=== PATIENT | female | born 1955 | race Caucasian/White ===

== ENCOUNTER 2017-05-04 19:23 | Emergency (ER) | payer OTHER ==
[2017-05-04] MEDS ORDERED: ALBUTEROL SULFATE 2.5 MG/3 ML NEB ONE (19:49)
[2017-05-04] MEDS ORDERED: NORMAL SALINE 10 ML SYRINGE FLUSH IVP PRN (19:49)
[2017-05-04 20:00] VITALS: RESP 18; TEMP 97.6
[2017-05-04 20:08] LABS: BASOPHILS % (AUTO) 0.8 % (0-1); EOSINOPHILS # (AUTO) 0.25 10*3/UL; EOSINOPHILS % (AUTO) 1.9 % (0-8); HEMATOCRIT 45.8 % (37.0-47.0); LYMPHOCYTES # (AUTO) 2.61 10*3/uL; MEAN CORPUSCULAR HEMOGLOBIN 29.6 PG (27-31); MEAN CORPUSCULAR HGB CONC 32.8 g/dL (33-37); MEAN CORPUSCULAR VOLUME 90.3 FL (81-99); MEAN PLATELET VOLUME 9.6 FL (7.4-12.2); MONOCYTES # (AUTO) 0.89 10*3/UL (0.3-0.8); MONOCYTES % (AUTO) 6.8 % (5-15); NEUTROPHILS # (AUTO) 9.27 10*3/UL; NEUTROPHILS % (AUTO) 70.3 % (50-80); RED BLOOD COUNT 5.07 10^6/uL (4.20-5.40)
[2017-05-04 20:10] LABS: PLATELET MORPHOLOGY COMMENT NORMAL MORPHOLOGY (NORM); RBC MORPHOLOGY COMMENT NORMAL MORPHOLOGY (NORM); WBC MORPHOLOGY COMMENT NORMAL MORPHOLOGY (NORM)
[2017-05-04 20:17] LABS: BLOOD UREA NITROGEN 22 mg/dL (7-22); CALCIUM 9.7 mg/dL (8.7-10.7); EST GLOMERULAR FILTRATION > 60 (>60 ml/min/1.73m(2)); SERUM ALBUMIN 4.2 g/dL (3.5-4.8)
--- NOTE | 2017-05-04 21:41 | DI ---
HISTORY: Cough, chest pain. COMPARISON: 11/09/2015. FINDINGS: The heart is in the upper limits of normal. Compared to the previous examination, there is accentuation of the pulmonary vasculature in both lung bases. The lung marr are otherwise essenti ally clear. IMPRESSION: 1. Accentuation of the pulmonary vasculature bilateral lung bases.
--- NOTE | 2017-05-04 22:32 | DI ---
HISTORY: Chest pain. Elevated D-dimer. TECHNIQUE: Contiguous axial images of the chest were obtained and submitted for interpretation. FINDINGS: Patient body habitus creates artifact that limits evaluation of fine anatomic detail. No main or segmental pulmonary emboli. There are emphysematous changes bilaterally, most conspicuous in the upper lobes. No pneumothorax, pl eural effusion, or area of consolidation. There are patchy areas of ground glass attenuation bilater ally. This is a non-specific finding with a broad differential that includes atypical infection, as w ell as pulmonary edema and hemorrhage. Airways are patent with no endobronchial lesion. No evidence of great vessel injury, dissection, or aneurysm. There are atheromatous aortic and coron lior artery calcifications. Heart size is at the upper limits of normal with no pericardial effusion. There are multiple shotty mediastinal and right hilar lymph nodes, not pathologically enlarged by CT size criteria. The thyroid exhibits normal CT morphology. Limited evaluation of the upper abdomen reveals diffuse hypoenhancement of the liver relative to the spleen, a finding commonly associated with hepatic steatosis. No acute osseous abnormality or aggressive osseous lesion. There is multilevel degenerative disc dise ase. The patient is status post total right shoulder arthroplasty. There are surgical changes of the lower cervical spine. IMPRESSION: 1. No CT evidence of main or segmental pulmonary emboli. 2. Bilateral emphysematous changes, most conspicuous in the upper lobes, with patchy areas of ground glass attenuation bilaterally. This is a non-specific finding with a broad differential that include s atypical infection, as well as pulmonary edema and hemorrhage. Follow-up to resolution is recommen ded. 3. Probable hepatic steatosis.
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
== END 2017-05-04 22:30 | disposition left against medical advice (07) ==
LOC: ER 19:23
DX: J20.9 Acute bronchitis, unspecified (principal); J18.9 Pneumonia, unspecified organism; J02.9 Acute pharyngitis, unspecified; J44.9 Chronic obstructive pulmonary disease, unspecified; R05 Cough; R79.1 Abnormal coagulation profile; E11.9 Type 2 diabetes mellitus without complications
CPT/HCPCS: 36415; 71020; 71275; 80053; 85025; 85379; 87040; 87802; 94640; 99283

== ENCOUNTER 2017-05-05 19:15 | Emergency (ER) | payer OTHER ==
[2017-05-05] MEDS ORDERED: HYDROcodone-APAP 5 MG -325 MG TABLET PO ONE (19:34)
[2017-05-05] MEDS ORDERED: KETOROLAC 60 MG/2 ML VIAL IM ONE (19:34)
[2017-05-05] MEDS ORDERED: GUAIFENESIN/CODEINE SYRUP 100 MG/ 10 MG/ 5 ML UD CUP PO SCH (19:45)
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
[2017-05-05 20:29] VITALS: RESP 18; TEMP 97
== END 2017-05-05 20:01 | disposition home or self-care (01) ==
LOC: ER 19:15
DX: J18.9 Pneumonia, unspecified organism (principal); R05 Cough; M54.89 Other dorsalgia; E11.9 Type 2 diabetes mellitus without complications
CPT/HCPCS: 96372; 99282 ×2; J1885; J2360

== ENCOUNTER → 2017-05-07 | Outpatient (CLI) | payer OTHER ==
--- NOTE | 2017-05-07 08:20 | DI ---
PA /LATERAL CHEST X-RAY, 05/07/2017 7:20 AM : Clinical History: Cough. Previous Exam: 05/04/2017. There is no acute soft tissue or bony abnormality. The heart on the current exam shows mild cardiomeg shilpa whereas on the previous exam, the heart size was normal. The vessels are more prominent in number and more plethoric and hazier than on the previous exam. This patient may have developed mild CHF. T here is no acute infiltrate or effusion. Mediastinal structures are normal. There are no pulmonary no dules. There is a compression fracture of the midthoracic spine, age indeterminate. Readin. Interval development of cardiomegaly. This patient may have mild CHF. 2. There is no acute infiltrate or effusion. 3. Midthoracic compression fracture, age indeterminant. By definition, this patient has severe osteo porosis.
--- NOTE | 2017-05-07 08:26 | DI ---
THORACIC SPINE SERIES, 05/07/2017 7:20 AM: Clinical History: Acute mid thoracic back pain. Previous Exam: None at this facility. Comparison is made with chest x-rays from 05/04/2017, and 05/07/20 17. Upright PA and lateral and upright lateral swimmer's views are submitted. A fracture of T8 with infer ior endplate invagination and loss of height of approximately 25-30%. On the PA film, there is parave rtebral widening on the left side at the level of T8 and extending to the mid body of T7 and T9. This would indicate this is a subacute or acute compression fracture. The remaining vertebral bodies are of normal height. The disc spaces are intact. Pedicles are normal. The patient has had previous anter ior fusions at C4-5 and C5-6. Readin. There is an acute or subacute compression fracture of T8 with loss of height anteriorly between 2 5-30%. By definition, this patient has severe osteoporosis. 2. The remainder of the thoracic spine series is normal.
== END ==
LOC: MOB RAD 07:21
PROVIDERS: ATTEND Physician Assistant
DX: R05 Cough (principal); M54.6 Pain in thoracic spine; M80.88XA Other osteoporosis with current pathological fracture, vertebra(e), initial encounter for fracture; I50.9 Heart failure, unspecified; F17.200 Nicotine dependence, unspecified, uncomplicated
CPT/HCPCS: 71020; 72072

== ENCOUNTER 2017-05-09 03:52 | Inpatient (IN) | payer OTHER ==
[2017-05-09] MEDS ORDERED: HYDROmorphone 2 MG/1 ML IVP ONE (04:40)
[2017-05-09] MEDS ORDERED: NORMAL SALINE 10 ML SYRINGE FLUSH IVP PRN (04:41)
[2017-05-09 05:15] LABS: BASOPHILS # (AUTO) 0.12 10*3/UL; BASOPHILS % (AUTO) 1.1 % (0-1); EOSINOPHILS # (AUTO) 0.49 10*3/UL; EOSINOPHILS % (AUTO) 4.7 % (0-8); HEMATOCRIT 41.2 % (37.0-47.0); HEMOGLOBIN 13.7 g/dL (12.0-16.0); LYMPHOCYTES # (AUTO) 2.55 10*3/uL; MEAN CORPUSCULAR HEMOGLOBIN 30.2 PG (27-31); MEAN CORPUSCULAR HGB CONC 33.3 g/dL (33-37); MEAN CORPUSCULAR VOLUME 90.7 FL (81-99); MEAN PLATELET VOLUME 9.8 FL (7.4-12.2); MONOCYTES % (AUTO) 8.6 % (5-15); RED BLOOD COUNT 4.54 10^6/uL (4.20-5.40)
[2017-05-09 05:16] LABS: PLATELET MORPHOLOGY COMMENT NORMAL MORPHOLOGY (NORM); RBC MORPHOLOGY COMMENT NORMAL MORPHOLOGY (NORM); WBC MORPHOLOGY COMMENT NORMAL MORPHOLOGY (NORM)
[2017-05-09 05:22] LABS: BLOOD UREA NITROGEN 18 mg/dL (7-22); CALCIUM 9.8 mg/dL (8.7-10.7); EST GLOMERULAR FILTRATION > 60 (>60 ml/min/1.73m(2)); SERUM ALBUMIN 4.1 g/dL (3.5-4.8)
[2017-05-09] MEDS ORDERED: ONDANSETRON 4 MG/2 ML VIAL IVP ONE (05:33)
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
[2017-05-09] MEDS ORDERED: ALBUTEROL SULFATE 8.5 GM HFA INHALER INH PRN (06:25)
[2017-05-09] MEDS ORDERED: ACETAMINOPHEN 325 MG TABLET PO PRN (06:25)
[2017-05-09] MEDS ORDERED: LIDOCAINE W/ SODIUM BICARB 0.5 ML SYR SUBD PRN (06:25)
[2017-05-09] MEDS ORDERED: GUAIFENESIN/CODEINE SYRUP 100 MG/ 10 MG/ 5 ML UD CUP PO PRN (06:25)
[2017-05-09] MEDS ORDERED: HYDROcodone-APAP 7.5 MG-325 MG TABLET PO PRN (06:25)
[2017-05-09 06:53] LABS: HEMOGLOBIN A1C 5.99 % (4.2-6.0)
[2017-05-09] MEDS: IPRATROPIUM/ALBUTEROL SULFATE 3 ML NEB NEB SCH ×3 (06:58→18:28)
[2017-05-09] MEDS ORDERED: BACLOFEN 20 MG TABLET PO SCH (07:00)
[2017-05-09] MEDS: HYDROmorphone 2 MG/1 ML IVP PRN ×2 (07:53→15:54)
[2017-05-09] MEDS: KETOROLAC 30 MG/1 ML VIAL IVP PRN ×2 (08:31→21:47)
[2017-05-09] MEDS: ONDANSETRON 4 MG/2 ML VIAL IVP PRN ×2 (08:31→14:37)
[2017-05-09] MEDS: PANTOPRAZOLE 40 MG TABLET PO SCH (08:39)
[2017-05-09 09:05] LABS: FREE T4 (FREE THYROXINE) 0.98 ng/dL (0.93-1.71); VITAMIN D 25-HYDROXY 26.1 NG/ML (30-100)
[2017-05-09] MEDS: Sertraline Tab 50 MG TAB PO SCH (12:37)
[2017-05-09] MEDS: POLYETHYLENE GLYCOL 3350 17 GM POWDER PO SCH (12:37)
[2017-05-09] MEDS: DEXTROAMPHETAMINE PO SCH ×2 (12:38→23:20)
[2017-05-09] MEDS: Calcium/Vit D 600mg/400u Tab 1 TAB TABLET PO SCH (12:38)
[2017-05-09] MEDS: AMPHETAMINE PO SCH ×2 (12:38→23:20)
[2017-05-09] MEDS: CALCIUM CARBONATE 500 MG (TUMS) CHEWABLE TABLET PO PRN ×2 (12:59→18:52)
[2017-05-09] MEDS ORDERED: CEFUROXIME 500 MG TABLET PO ONE (13:41)
[2017-05-09] MEDS ORDERED: ERGOCALCIFEROL 50,000 IU CAPSULE PO SCH (13:45)
--- NOTE | 2017-05-09 13:49 | PDOC ---
History and Physical - History of Present Illness Date and Time of Service: 05/09/2017, 1345 Chief Complaint: Back pain radiating around the rib cage and nausea and vomiting History of Present Illness: This very pleasant 61-year-old female who is hard of hearing, has a diagnosis of attention deficit hyperactivity disorder that is still being treated from childhood, tobacco abuse with COPD, and a Worker's Comp. disability from a fall in 2013 who presents with complaints of back pain and associated nausea and vomiting starting about a week to a week and a half ago. She states that she was brushing her hair or combing her hair and had a sudden onset of pain in her mid back that radiated around her rib cage. It's been further exacerbated by cough and she's noticed that she's had nausea and vomiting. No fevers or chills. The cough has been present for the last couple weeks as well and definitely worsens the pain. She's not had any prior abdominal surgeries. Imaging to this point has been suggestive of a T8 compression fracture, although a plan was to get an MRI scan to confirm and further workup and diagnosis. The patient states that ibuprofen has not helped with the pain. She states pain medications here have been helping it. She has had significant musculoskeletal difficulties over the past 3 years, and particular starting on the November 2013 when she fell at work. She has had subsequent right shoulder surgery on a couple of occasions. On that fall she twisted and fell over a box and apparently landed on her left hand. Other details can be reviewed and other documentation. She states that the pain she felt in her back was similar to the pain she felt back in 2014 with her fall. I noticed that the patient had significant movement of her arms and legs that looked almost chorionic in nature and I have noticed that the same types of movements have been noted on other examinations, but the patient denies any history of Elliott's Chorea in the family. Past Medical History Medical History: 1. Diabetes, currently diet controlled. 2. Hypertension. 3. COPD, patient still smokes. 4. Objective sleep apnea but noncompliant with CPAP therapy. She does not tolerate it. 5. Depression. 6. ADHD, on Adderall. 7. GERD. 8. elevated cholesterol. 9. Hard of hearing Surgical History: 1. Right shoulder surgery 2. 2. Thoracic fusion Pertinent Family History: States her mother of old age in her 90s, dad of heart attack problems Past Social History: Smoker, doesn't drink alcohol. Lives alone here in [place] , has children that are described as healthy. She is on disability from a Worker's Comp. case. Tobacco Use: Current Every Day Smoker Substance Use Type: None Alcohol Use: None Medication / Allergies Home Medications: Home Medications Medication Instructions Recorded Confirmed Type Azelastine/Fluticasone [Dymista 2 spr LUIS ALBERTO BID spr 06/14/16 05/09/17 History Nasal [place]] Albuterol Sulfate [Proair Hfa] 2 puff INH Q4-6H #1 inh 01/23/17 05/09/17 Clinic Albuterol/Ipratrop Neb Soln 3 ml NEB 3-4XD #120 appful 01/23/17 05/09/17 Clinic [Duoneb Neb Soln] Pantoprazole Sodium 1 tab PO DAILY #30 tab 02/13/17 05/09/17 Clinic Pravastatin Sodium 1 tab PO DAILY #30 tab 02/28/17 05/09/17 Clinic Zolpidem Tartrate [Ambien] 1 tab PO QHS #30 tab 03/09/17 05/09/17 Clinic Sertraline HCl [Zoloft] 1 tab PO DAILY #30 tab 04/09/17 05/09/17 Clinic guaiFENesin/Codeine Liquid 5 - 10 ml PO Q6H PRN #100 ml 05/05/17 05/09/17 Rx [Robitussin AC Liquid] Dextroamphetamine/Amphetamine 1 tab PO BID #60 cap 05/07/17 05/09/17 Clinic [Adderall Xr 30 Mg Capsule] Hydrocodone Bit/Acetaminophen 1 tab PO Q4-6H #20 tab 05/07/17 05/09/17 Clinic [[place] 7.5-325 Tablet] Baclofen 10 mg PO Q8H #90 tab 05/08/17 05/09/17 Clinic Allergies/Adverse Reactions: Allergies Allergy/AdvReac Type Severity Reaction Status Date / Time No Known Allergies Allergy Verified 05/09/17 06:42 Review of Systems - Review of Systems All Systems: Reviewed & No Additional Complaints Except as Stated (I did a 12 point review systems and it was negative other than that discussed in history present illness and that noted below.) - Respiratory Respiratory: REPORTS: Cough - Cardiovascular Cardiovascular: DENIES: Negative System Review, Chest Pain, Edema, Syncope, Palpitations, Orthopnea, Paroxysmal Nocturnal Dyspnea, Other, See HPI - Gastrointestinal Gastrointestinal / Abdominal: REPORTS: Nausea, Vomiting - Genitourinary Genitourinary: DENIES: Negative System Review, Pain, Burning, Hematuria, Incontinence, Urgency, Hesitant Stream, Decreased Stream, Nocutria, Discharge, Sexual Dyfunction, Other, See HPI - Gynecological Gynecological: REPORTS: Other (Stopped having periods in 2005, no vaginal bleeding.) - Musculoskeletal Musculoskeletal: REPORTS: Back Pain, Other (Complains of rib pain and back pain , mid thoracic region.) - Neurological Neurologic: REPORTS: Other (Denies headache, seizure, or stroke. States that she has muscle pains frequently and moves her arms and legs frequently.) - Psychiatric Psychiatric: REPORTS: Other (Positive for ADHD.) Exam - Vitals Vital Signs: Vital Signs Temperature 96.5 F Temperature Source Temporal Artery Scan Pulse Rate [Pulse Oximeter] 77 Respiratory Rate 20 Blood Pressure [Right Arm] 134/54 Pulse Ox 93 Oxygen Flow Rate 3 Oxygen Delivery Method Room Air Height 5 ft 9 in Weight 230 lb - General General Appearance: POSITIVE: No Acute Distress, Cooperative - Head Head Exam: POSITIVE: Normal Inspection, Normocephalic, Atraumatic - Eye Eye Exam: POSITIVE: No Scleral Icterus - ENT ENT Exam: POSITIVE: Mucous Membranes Moist Additonal ENT Exam Details: Hearing aids are on bilaterally. - Neck Neck Exam: POSITIVE: Normal Inspection - Respiratory Respiratory Exam: POSITIVE: Breathing Non Labored, Normal to Percussion and Palpation, Coarse Breath Sounds - Cardiovascular Cardiovascular Exam: POSITIVE: RRR, No Murmur, No Clicks, No Gallops, No Rubs, No JVD - GI/Abdominal GI/Abdominal Exam: POSITIVE: Normal Bowel Sounds, Non Tender, Non Distended, Soft - Rectal Rectal Exam: POSITIVE: Deferred - External Exam: POSITIVE: Deferred Exam: POSITIVE: Deferred - Extremities Extremities Exam: POSITIVE: No Clubbing Present, No Edema Present, No Cyanosis Present Additional Extremities Exam Details: Has significant almost chorea like movements in the upper extremities and lower extremities. - Back Back Exam: POSITIVE: No CVA Tenderness - Neurological Neurological Exam: POSITIVE: Alert, Oriented x 3, Normal Gait, No Facial Droop, Speech Intact / Clear, Moves All Extremities Equally - Psychiatric Psychiatric Exam: POSITIVE: Normal Affect, Normal Mood Results - Labs CBC and BMP: 05/09/17 05:00 05/09/17 05:00 Labs - Last 24 Hours: Laboratory Results 05/09/17 05/09/17 Range/Units 04:41 05:00 WBC 10.49 (4.8-10.8) 10^3/uL RBC 4.54 (4.20-5.40) 10^6/uL Hgb 13.7 (12.0-16.0) g/dL Hct 41.2 (37.0-47.0) % MCV 90.7 (81-99) FL MCH 30.2 (27-31) PG MCHC 33.3 (33-37) g/dL RDW Std Deviation 46.9 (39-50) fL RDW Coeff of Joseph 14.4 (11.5-14.5) % Plt Count 299 (140-350) 10*3/uL MPV 9.8 (7.4-12.2) FL Immature Gran % (Auto) 0.3 (0-5) % Neut % (Auto) 61.0 (50-80) % Lymph % (Auto) 24.3 (10-50) % [place] % (Auto) 8.6 (5-15) % Eos % (Auto) 4.7 (0-8) % Baso % (Auto) 1.1 H (0-1) % Immature Gran # (Auto) 0.03 10*3/UL Neut # (Auto) 6.40 10*3/UL Lymph # (Auto) 2.55 10*3/uL [place] # (Auto) 0.90 H (0.3-0.8) 10*3/UL Eos # (Auto) 0.49 10*3/UL Baso # (Auto) 0.12 10*3/UL WBC Morphology Comment Normal morphology (NORM) Plt Morphology Comment Normal morphology (NORM) RBC Morph Comment Normal morphology (NORM) Sodium 138 (135-145) meq/L Potassium 4.4 (3.8-5.2) meq/L Chloride 102 (98-112) meq/L Carbon Dioxide 26 (23-33) meq/L Anion Gap 10 (5-20) BUN 18 (7-22) mg/dL Creatinine 0.8 (0.50-1.20) mg/dL Estimated GFR > 60 (>60 ml/min/1.73m(2)) BUN/Creatinine Ratio 22.50 H (6-20) Glucose 108 (78-110) mg/dL Mean Blood Glucose 113.467 mg/dL Hemoglobin A1c 5.99 (4.2-6.0) % Calculated Osmolality 288.0 (267-292) mOsm/kg Calcium 9.8 (8.7-10.7) mg/dL Total Bilirubin 0.6 (0.3-1.2) mg/dL AST 24 (8-39) IU/L ALT 40 (9-52) IU/L Alkaline Phosphatase 109 (38-126) IU/L Total Protein 7.4 (6.1-8.0) g/dL Albumin 4.1 (3.5-4.8) g/dL Globulin 3.3 (2.50-4.10) g/dL Albumin/Globulin Ratio 1.20 L (1.3-2.0) mg/g Vitamin B12 414 (239-931) pg/mL Vitamin D 25-Hydroxy 26.1 L (30-100) NG/ML Serum Folate 17.9 (2.76-20.0) NG/ML TSH 4.74 H (0.2700-4.2000) uIU/mL Free T4 0.98 (0.93-1.71) ng/dL Assessment and Plan - Patient Problems (1) COPD (chronic obstructive pulmonary disease) Current Visit: Yes Status: Acute (2) Thoracic back pain Current Visit: Yes Status: Acute (3) Attention deficit disorder Current Visit: Yes Status: Acute (4) Chronic right shoulder pain Current Visit: Yes Status: Chronic (5) Nausea and vomiting Current Visit: Yes Status: Acute (6) Obstructive sleep apnea Current Visit: Yes Status: Acute (7) Obesity Current Visit: Yes Status: Acute Qualifiers: Obesity type: unspecified obesity type Obesity severity: non-morbid Qualified Description: Non morbid obesity, unspecified obesity type Qualifier Code(s): (E66.9) Obesity, unspecified (8) Tobacco abuse Current Visit: Yes Status: Acute - Assessment / Plan Additional Assessment/Plan Details: Overall, I think the patient probably has COPD exacerbation with worsening cough here recently. We'll streak that with antibiotics and steroids and breathing therapies as necessary. In terms of the thoracic back pain, this is most likely attributable to a T8 compression fracture and I will go ahead with a thoracic MRI to confirm. 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 That would fit her medical conditions. The patient has a lot of atypical movements of her arms and legs that make me think of Elliott's chorea. We will get the genetic tests to confirm whether this is right. She states that she sees a neurologist, and I'll try to track down his records as well. Pain medications for abdominal and thoracic pain as well as antiemetics. I discussed the above plan with the patient and she agreed.
--- NOTE | 2017-05-09 14:00 | DI ---
CT ABDOMEN SCAN WITHOUT AND WITH IV CONTRAST, 05/09/2017 12:33 PM : Clinical History: Nausea and vomiting. Previous Exam: None at this facility. Scans are performed from the lower lung bases through the liver and kidneys without and with IV contr ast. Sagittal and coronal images are generated. 95 ml of Isovue 300 was injected IV. No oral or recta l contrast was ordered. The lung bases are clear. The liver is normal. The gallbladder is grossly normal. There is no abnorma lity of the spleen, pancreas, and adrenal glands. Both kidneys are normal in size, shape, position an d contour. There is no hydronephrosis or hydroureter. No renal or ureteral calculi are present. There are no abnormal retrocrural or periaortic nodes. There is no ascites. READING: Normal CT abdomen scan without and with IV contrast. CT PELVIS SCAN WITHOUT AND WITH IV CONTRAST, 05/09/2017 12:33 PM: Clinical History: See above. Previous Exam: None at this facility. Scans are performed from just superior to the umbilicus to the symphysis pubis without and with IV co ntrast. This is the same bolus of IV contrast used for the CT scans of the abdomen. Scans through the lower abdomen and pelvis show no masses or abnormal fluid collections. There is no adenopathy. The appendix is not visualized but there is no inflammatory mass either in the cecal tip or in the right lower quadrant. The small bowel, terminal ileum, and ileocecal valve are intact. The colon is also normal. There are no hernias. The uterus and both ovaries are normal. READING: Normal CT scan of the pelvis.
[2017-05-09] MEDS ORDERED: DIAZEPAM 5 MG TABLET PO ONE (14:11)
[2017-05-09] MEDS: oxyCODONE-ACETAMINOPHEN 5-325 TAB PO PRN ×2 (14:13→22:11)
--- NOTE | 2017-05-09 16:02 | PT.PROG ---
Progress Note Progress Note: Nursing suggested hold this afternoon due to pain and Patient having MRI.
--- NOTE | 2017-05-09 17:57 | DI ---
MRI THORACIC SPINE SCAN, 05/09/2017 12:32 PM: Clinical History: Mid thoracic back pain. Previous Exam: None. Comparison is made with a CT scan of the abdomen and pelvis dated 05/09/2017 and the thoracic spine series from 05/07/2017. Technique: Sagittal T1 and T2 weighted and STIR scans are supplemented with an axial angulated T1 and T2 weighted scans between T1 and T12. There is a compression fracture of T8 primarily involving the inferior endplate with loss of height l ess than 10%. The entire vertebral body shows increased signal intensity on the T2-weighted and STIR sequences and low signal intensity on the T1-weighted sequences. There is no paravertebral soft tissu e widening to indicate a hematoma. Therefore, this compression fracture most likely is subacute. The remaining thoracic vertebral bodies are of normal height. The thoracic disc spaces are of normal heig ht and all show desiccation change. The thoracic cord and the conus medullaris are normal. T2-3 has a bulging but not herniated disc without canal or neural foraminal stenosis. All other thoracic disc s pace levels are normal. There is no intradural extramedullary lesion present. Readin. There is a very mild compression fracture involving the body of T8 consistent with a subacute fra cture. This same level was felt to be a chronic compression fracture on the CT scan because of the ab sence of any paravertebral widening at the T8 level. However, there was some widening on the left shelley e on the thoracic spine series of 05/07/2017, and this presumably since has resolved. 2. There is a bulging but not herniated disc without canal or neural foraminal stenosis at T2-3. 3. All other thoracic disc spaces are normal.
[2017-05-09] MEDS: Pravastatin Tab 20 MG TAB PO SCH (21:45)
[2017-05-09] MEDS: ZOLPIDEM 10 MG TABLET PO SCH (21:45)
[2017-05-09] MEDS: CEFUROXIME 500 MG TABLET PO SCH (21:45)
[2017-05-09] MEDS: NORMAL SALINE 10 ML SYRINGE FLUSH IVP PRN (21:49)
[2017-05-09] MEDS ORDERED: GUAIFENESIN 600 MG TABLET PO PRN (22:42)
[2017-05-10] MEDS: IPRATROPIUM/ALBUTEROL SULFATE 3 ML NEB NEB SCH ×4 (01:05→18:40)
[2017-05-10] MEDS: HYDROmorphone 2 MG/1 ML IVP PRN ×3 (01:29→20:13)
[2017-05-10] MEDS: oxyCODONE-ACETAMINOPHEN 5-325 TAB PO PRN ×4 (04:15→21:42)
[2017-05-10] MEDS: KETOROLAC 30 MG/1 ML VIAL IVP PRN (06:01)
[2017-05-10] MEDS: NORMAL SALINE 10 ML SYRINGE FLUSH IVP PRN ×3 (06:02→14:31)
[2017-05-10] MEDS: PANTOPRAZOLE 40 MG TABLET PO SCH (06:49)
--- NOTE | 2017-05-10 08:47 | PTI REPORT ---
Thank you for the referral of Viviane Oscar. She was seen on 05/09/17 for an inpatient evaluation secondary to a compression fracture. SUBJECTIVE: The patient is a 61-year-old female who states that approximately a week and a half ago she began to have some severe stomach pains and back pain. The patient states that over the weekend she was in the ER twice where an x-ray and CT scan were performed. The patient possibly has a T8 or T9 compression fracture. The patient was then in Urgent Care on Sunday, continuing to complain of severe pain. The patient did meet with BOWEN Guerrero yesterday in regards to her back pain and the patient was given an order for a back brace but was unable to afford it due to her insurance. The patient states that last night she did take her pain medication and Ambien prior to going to bed in her recliner as she is unable to lay supine. The patient states that some time in the middle of the night she woke up screaming and her neighbors called 911 and that is how she ended up in the hospital. The patient states that she feels very nauseous; she has not been able to eat and feels that a lot of it is due to the pain medication that she has been given. The patient complains of back pain radiating around her ribs as well as abdominal pain. Prior to admittance to the hospital, the patient has had multiple surgeries in the past. She was currently being seen by physical therapy for a reverse right total shoulder that occurred in October of 2016 following two failed rotator cuff repairs on the right side. The patient has had a history of neck and back pain. The patient lives alone in her apartment with her service dog Ap and she does have a friend who does help take care of issues that arise. The patient is also legally deaf. She does have hearing aids but does not have them present during our initial evaluation. Her friend is supposed to be bringing those in later today. Prior to admittance to the hospital the patient was independent with ambulating, driving, and performing ADLs and small iADLs. The patient did receive meals on wheels and also assistance from her friend as needed with more strenuous activities. The patient is very stressed out at this time as her service dog recently had a surgery and she is very worried about how he is doing. PAST MEDICAL HISTORY: Past medical history can be found in the patient's medical record. OBJECTIVE FINDINGS: General observations: The patient is alert and oriented to setting upon PT arrival. The patient appears very distraught as she is concerned about her service dog and also is frustrated as she does not have her hearing aids, so she is having a very tough time understanding exactly what is going on. The patient states that she is very nauseous, she has been unable to eat and feels very sick to her stomach. The patient is sitting up semi reclined in bed as she is unable to lay supine. Transfers: Due to the patient's pain, we were unable to perform transfers. She was able to sit up in bed in order to put IFC on her mid back to help with pain modulation. Range of motion: The patient is able to move both upper and lower extremities independently. Strength: The patient demonstrates 3/5 strength of bilateral lower extremities. ASSESSMENT: The patient has fair rehab potential due to her past medical history. Problem List: Uncontrolled pain of back and abdomen Generalized weakness Decreased endurance Decreased activity tolerance Short-Term Goals: To be met by discharge from inpatient: Patient will report a 50% decrease in pain in order to be able to perform ADLs and transfers independently. Patient will be independent and safe with transfers and ambulation in order to return back to her apartment. Patient will be able to perform 30 minutes of exercise in order to improve her overall endurance and activity tolerance to return back home and to continue to care for herself as independently as possible. Long-Term Goals: To be met following discharge from inpatient: Patient most likely will be seen by outpatient physical therapy to improve overall strength. She will continue to be seen for her right shoulder following discharge. TREATMENT PLAN: Patient will be seen B.I.D during the week and one time per day over the weekend as an inpatient for pain management with modalities as needed, working on independence and safety with transfers, ambulation, and general strengthening activities. INITIAL TREATMENT: Treatment today consisted of the initial evaluation followed by IFC to her mid back for pain modulation. The patient was issued a brace for suspected compression fracture. THEODORE
[2017-05-10] MEDS ORDERED: Meloxicam Tab 7.5 MG TABLET PO ONE (09:29)
[2017-05-10] MEDS: Calcium/Vit D 600mg/400u Tab 1 TAB TABLET PO SCH (10:28)
[2017-05-10] MEDS: Sertraline Tab 50 MG TAB PO SCH (10:29)
[2017-05-10] MEDS: predniSONE Tab 20 MG TAB PO SCH (10:29)
[2017-05-10] MEDS: CEFUROXIME 500 MG TABLET PO SCH ×2 (10:29→20:05)
[2017-05-10] MEDS: POLYETHYLENE GLYCOL 3350 17 GM POWDER PO SCH (10:29)
[2017-05-10] MEDS: DEXTROAMPHETAMINE PO SCH ×2 (10:33→20:05)
[2017-05-10] MEDS: AMPHETAMINE PO SCH ×2 (10:33→20:05)
--- NOTE | 2017-05-10 12:05 | PT.PROG ---
Progress Note Progress Note: S. Patient stated that she is having a lot of pain this morning and would like to try the pool. O. Patient ambulated 175 feet to the pool where she performed aquatic exercises x 20 minutes. patient was left with OT for further therapy. A. Patient tolerated aquatic therapy well, she continues to have pain however the pool decreased pain for the time being. Patient would continue to benefit from skilled therapy at this time. P. Continue POC.
[2017-05-10] MEDS: ONDANSETRON 4 MG/2 ML VIAL IVP PRN (14:31)
--- NOTE | 2017-05-10 15:33 | PDOC(PROG) ---
Date and Time of Service: 05/10/2017, 1527 Interval History: Patient seen and examined earlier today. No complaints of chest pain. Nausea and vomiting has resolved and she is eating well. She cannot lay flat and states her pain is worse when she laughs or coughs. Imaging studies consistent with T8 compression fracture. No abdominal pathology. cough and shortness of breath improved some. Objective : Data - Labs CBC and BMP: 05/09/17 05:00 05/09/17 05:00 - Imaging CT Scan Status: Image Reviewed by Me (abdomen and pelvis CT scan was normal.) MRI Status: Report Reviewed by Me (T8 compression fracture.) Objective : Exam - General General Appearance: No Acute Distress, Cooperative Additional General Exam Details: Vital Signs - Last Taken Temperature 97.6 F 05/10/17 09:00 Pulse Rate 71 05/10/17 13:00 Respiratory Rate 20 05/10/17 13:00 Blood Pressure 148/70 05/10/17 13:00 Pulse Ox 89 05/10/17 13:00 - Eye Eye Exam: No Scleral Icterus - ENT ENT Exam: Mucous Membranes Moist - Respiratory Respiratory Exam: Clear to Auscultation - Bilaterally, Breathing Non Labored - Cardiovascular Cardiovascular Exam: RRR, No Murmur, No Clicks, No Gallops, No Rubs, No JVD - GI/Abdominal GI/Abdominal Exam: Normal Bowel Sounds, Non Tender, Non Distended, Soft - Extremities Extremities Exam: No Clubbing Present, No Edema Present, No Cyanosis Present - Neurological Neurological Exam: Alert, Oriented x 3, No Facial Droop, Speech Intact / Clear, Moves All Extremities Equally Assessment and Plan - Patient Problems (1) COPD (chronic obstructive pulmonary disease) Current Visit: Yes Status: Acute (2) Thoracic back pain Current Visit: Yes Status: Acute (3) Attention deficit disorder Current Visit: Yes Status: Acute (4) Chronic right shoulder pain Current Visit: Yes Status: Chronic (5) Nausea and vomiting Current Visit: Yes Status: Acute (6) Obstructive sleep apnea Current Visit: Yes Status: Acute (7) Obesity Current Visit: Yes Status: Acute Qualifiers: Obesity type: unspecified obesity type Obesity severity: non-morbid Qualified Description: Non morbid obesity, unspecified obesity type Qualifier Code(s): (E66.9) Obesity, unspecified (8) Tobacco abuse Current Visit: Yes Status: Acute - Assessment / Plan Additional Assessment/Plan Details: overall, I think the COPD exacerbation and osteoporosis, the T8 compression fracture pain is a bit worse try a brace continue PT and OT there is concern that the patient's medications are not taken appropriately, would like to continue evaluating continue antibiotics and steroids. Swing bed? will discuss with patient tomorrow.
[2017-05-10] MEDS: ZOLPIDEM 10 MG TABLET PO SCH (20:04)
[2017-05-10] MEDS: Pravastatin Tab 20 MG TAB PO SCH ×2 (20:04→20:53)
[2017-05-11] MEDS: HYDROmorphone 2 MG/1 ML IVP PRN ×2 (00:19→03:05)
[2017-05-11] MEDS: oxyCODONE-ACETAMINOPHEN 5-325 TAB PO PRN ×2 (02:54→08:17)
[2017-05-11] MEDS: ONDANSETRON 4 MG/2 ML VIAL IVP PRN ×2 (03:06→08:39)
[2017-05-11] MEDS: IPRATROPIUM/ALBUTEROL SULFATE 3 ML NEB NEB SCH ×2 (04:24→06:33)
[2017-05-11] MEDS: PANTOPRAZOLE 40 MG TABLET PO SCH (08:18)
[2017-05-11 08:23] VITALS: RESP 22; TEMP 97.6
[2017-05-11] MEDS: Calcium/Vit D 600mg/400u Tab 1 TAB TABLET PO SCH (08:39)
[2017-05-11] MEDS: Sertraline Tab 50 MG TAB PO SCH (08:39)
[2017-05-11] MEDS: CEFUROXIME 500 MG TABLET PO SCH (08:39)
[2017-05-11] MEDS: predniSONE Tab 20 MG TAB PO SCH (08:39)
[2017-05-11] MEDS: POLYETHYLENE GLYCOL 3350 17 GM POWDER PO SCH (08:39)
[2017-05-11] MEDS: DEXTROAMPHETAMINE PO SCH (08:40)
[2017-05-11] MEDS: AMPHETAMINE PO SCH (08:40)
[2017-05-11] MEDS ORDERED: Meloxicam Tab 7.5 MG TABLET PO SCH (09:00)
--- NOTE | 2017-05-11 11:32 | OTI REPORT ---
Thank you for the referral of Viviane Oscar. She was seen on 05/10/17 for an occupational therapy inpatient evaluation secondary to a compression fracture. SUBJECTIVE: The patient is a 61-year-old female. The patient reports that she was in her home and her neighbor heard her screaming and called the ambulance and she was admitted to the hospital. The patient reports that she live at home by herself. The patient recently had shoulder surgery in October. The patient reports that she just moved to some new apartments but they have stairs going in and out of her home and she is having increased difficulty with this. The patient also reports that she is having difficulty laying flat in bed as it increases her pain. The patient is reporting a lot of confusion with her medication; she takes medications she is not supposed to at times and then realizes that she wasn't supposed to take them, or she runs out of medications a lot sooner than she is supposed to. PAST MEDICAL HISTORY: Past medical history can be found in the patient's medical record. OBJECTIVE FINDINGS: Bed mobility: The patient was able to come from supine to sit with increased time. The patient sat edge of bed. When getting back into bed, the patient had to be in the correct position in order for the patient to lay comfortably. The head of the bed was at a 60 degree angle and the patient had her legs elevated. The patient reported that having a hospital bed at her house would be very beneficial at her house as she usually lives in her recliner and cannot lay flat on her regular bed. Activities of daily living: The therapist helped the patient don her back brace. The patient has difficulty using the right arm to tighten the brace, but she can use her left arm to tighten the brace. The patient needed max assist to don socks and mod assist to start donning pants. She was then able to pull pants from mid lower leg level to waist level with stand by assist. After pool therapy with PT, OT assisted the patient with drying off and dressing self. She needed max assist to doff her shirt and shorts after swimming but was able to don shirt with min assist secondary to pain. She was able to don shorts with max assist and then was able to pull shorts from mid calf to waist level with stand by assistance. The patient was issued a sock aide and was able to use it with min assist. Ambulation: The patient ambulated approximately 100 feet with the therapist. She needed a lot of cognitive cueing in order to slow down as to not increase her pain. UE AROM/strength: Pt. had WFL for AROM of B UE's and strength of 4/5 on left and 3/5 on right. ASSESSMENT: The patient does need a lot of cues to slow down. She is very back and forth between her emotions at times. At this time the patient is not necessarily demonstrating enough safety to go home by herself. She would benefit from some more therapy to reduce pain levels. Short-Term Goals: To be met by discharge from inpatient: Patient will be able to dress self independently with or without use of adaptive equipment. Patient will be able to improve UE strength Patient will be able to demonstrate safety and independence with all functional transfers such as toilet and shower independently. Patient will be able to don back brace independently Long-Term Goals: To be met following discharge from inpatient: Patient will be able to return home demonstrating safety and independence with all ADL's and functional transfers independently. TREATMENT PLAN: Patient will be seen B.I.D during the week and one time per day over the weekend as an inpatient to address the above goals and objectives. INITIAL TREATMENT: Treatment today consisted of the initial evaluation followed by the patient performing ADLs in her room as well as ADLs after pool therapy. The therapist discussed getting a hospital bed with the patient's nurse case manager as well as having someone come over to set up medications. The patient is demonstrating a need for a little more assistance than what she has at this time. She does not necessarily need 24-hour supervision, but she does need more supervision than she currently has. The patient would also benefit from further cognitive testing. The patient was issued a sock aide and instructed in its proper use and care. THEODORE
--- NOTE | 2017-05-11 11:43 | PT.PROG ---
Progress Note Progress Note: Patent refused therapy this morning. She however agreed to go to the pool this afternoon.
--- NOTE | 2017-05-11 14:20 | DCSUMMARY ---
Hospitalization Summary Admit Date: 05/09/17 Discharge Date: 05/11/17 Primary Diagnosis:: T8 compression fracture Secondary Diagnosis:: COPD exacerbation, improved Hospital Course: This very pleasant 7-year-old female who suffers from hearing loss, attention deficit hyperactivity disorder, and COPD. She came in with complaints of back pain and abdominal discomfort and nausea. Workup revealed a T8 compression fracture, with no evidence for acute pathology in the abdomen by abdominal CT scan and pelvic CT scan. The patient also had significant cough which worsened her pain and her cough has been new. She is an active smoker and has known emphysema, and so we placed her on antibiotics and steroids for COPD exacerbation. In terms of the COPD exacerbation, cough significantly improved. By the time of discharge, we stopped steroids and continued antibiotics. Breathing therapies were administered in the hospital. In terms of the abdominal pain, CT scan of the abdomen and pelvis clear that up and her symptoms were variable through the hospital stay. They seem to be worse when her compression fracture pain was worse. In terms of the compression fracture, we placed the patient on opiates, and Mobic. It could be that the anti-inflammatory is also irritating this stomach lining, but she is luckily on a chronic proton pump inhibitor therapy. I advised her to continue that. In terms of the compression fracture we also recommended that the patient continue with physical therapy and pool therapy which she seemed to do well with and it did reduce her pain. We got her a brace which seemed to help as well. She did report incidentally, that her pain has significantly improved in the hospital stay and is much better than it was when initially started. I discussed vertebral plasty and kyphoplasty with the patient and told her that this would not be a good idea as outcomes are no different than conventional medical therapy. Today, back pain is present but better, no chest pain, no short is breath, no vomiting but did have some nausea earlier. I told the patient if her nausea persists, she should be evaluated again as an outpatient. She stated that she still felt ready to go home. She wanted to go home. She stated she would comply with taking proton pump inhibitor. Also we did notice a vitamin D deficiency and placed her on 50,000 international units weekly for the next 7 weeks. I put her on calcium plus vitamin D daily. Assessment and Plan: 1. As per discharge assessments noted 2. Disposition: Patient is discharged home. 3. Condition on discharge, stable and improved. 4. Diet: regular diet 5. Activities: resume normal activities 6. Follow-Up: 1. See Dr. Allen and next available appointment. 2. 7. Medications at the Time of Discharge: Home Medications Medication Instructions Recorded Confirmed Type Albuterol Sulfate [Proair Hfa] 2 puff INH Q4-6H #1 inh 01/23/17 05/09/17 Clinic Albuterol/Ipratrop Neb Soln 3 ml NEB 3-4XD #120 appful 01/23/17 05/09/17 Clinic [Duoneb Neb Soln] Pravastatin Sodium 1 tab PO DAILY #30 tab 02/28/17 05/09/17 Clinic Zolpidem Tartrate [Ambien] 1 tab PO QHS #30 tab 03/09/17 05/09/17 Clinic Sertraline HCl [Zoloft] 1 tab PO DAILY #30 tab 04/09/17 05/09/17 Clinic Dextroamphetamine/Amphetamine 1 tab PO BID #60 cap 05/07/17 05/09/17 Clinic [Adderall Xr 30 mg Capsule] Calcium/Vit D 600mg/400u Tab 2 tab PO DAILY #180 tab 05/11/17 Rx [Calcium 600mg + D 400u Tab] Cefuroxime Axetil [Ceftin] 500 mg PO BID #6 tab 05/11/17 Rx Ergocalciferol [Vitamin D] 50,000 iu PO Q7D #7 cap 05/11/17 Rx Meloxicam [Mobic] 15 mg PO DAILY PRN #20 tab 05/11/17 Rx oxyCODONE/APAP 5/325 Tab 0.5 - 1 tab PO Q6H PRN #30 tab 05/11/17 Rx [Percocet 5/325 Tab] Prilosec [id number] as well. On tablet daily. 8. Time, care, counseling and coordination of care for this discharge is greater than 30 minutes. Exam - Vitals Vital Signs: Vital Signs Temperature 97.6 F Temperature Source Temporal Artery Scan Pulse Rate [Pulse Oximeter] 74 Respiratory Rate 22 Blood Pressure [Right Arm] 120/58 Pulse Ox 90 Oxygen Flow Rate 2 Oxygen Delivery Method Room Air Height 5 ft 9 in Weight 241 lb 9.6 oz - General General Appearance: POSITIVE: No Acute Distress, Cooperative - ENT ENT Exam: POSITIVE: Mucous Membranes Moist - Respiratory Respiratory Exam: POSITIVE: Clear to Auscultation - Bilaterally, Breathing Non Labored - Cardiovascular Cardiovascular Exam: POSITIVE: RRR, No Murmur, No Clicks, No Gallops, No Rubs, No JVD - GI/Abdominal GI/Abdominal Exam: POSITIVE: Normal Bowel Sounds, Non Tender, Non Distended, Soft - Extremities Extremities Exam: POSITIVE: No Clubbing Present, No Edema Present, No Cyanosis Present - Neurological Neurological Exam: POSITIVE: Alert, Oriented x 3, No Facial Droop, Speech Intact / Clear, Moves All Extremities Equally Data Perinent Studies: Laboratory Results 05/09/17 05/09/17 Range/Units 04:41 05:00 WBC 10.49 (4.8-10.8) 10^3/uL RBC 4.54 (4.20-5.40) 10^6/uL Hgb 13.7 (12.0-16.0) g/dL Hct 41.2 (37.0-47.0) % MCV 90.7 (81-99) FL MCH 30.2 (27-31) PG MCHC 33.3 (33-37) g/dL RDW Std Deviation 46.9 (39-50) fL RDW Coeff of Joseph 14.4 (11.5-14.5) % Plt Count 299 (140-350) 10*3/uL MPV 9.8 (7.4-12.2) FL Immature Gran % (Auto) 0.3 (0-5) % Neut % (Auto) 61.0 (50-80) % Lymph % (Auto) 24.3 (10-50) % Overton % (Auto) 8.6 (5-15) % Eos % (Auto) 4.7 (0-8) % Baso % (Auto) 1.1 H (0-1) % Immature Gran # (Auto) 0.03 10*3/UL Neut # (Auto) 6.40 10*3/UL Lymph # (Auto) 2.55 10*3/uL Overton # (Auto) 0.90 H (0.3-0.8) 10*3/UL Eos # (Auto) 0.49 10*3/UL Baso # (Auto) 0.12 10*3/UL WBC Morphology Comment Normal morphology (NORM) Plt Morphology Comment Normal morphology (NORM) RBC Morph Comment Normal morphology (NORM) Sodium 138 (135-145) meq/L Potassium 4.4 (3.8-5.2) meq/L Chloride 102 (98-112) meq/L Carbon Dioxide 26 (23-33) meq/L Anion Gap 10 (5-20) BUN 18 (7-22) mg/dL Creatinine 0.8 (0.50-1.20) mg/dL Estimated GFR > 60 (>60 ml/min/1.73m(2)) BUN/Creatinine Ratio 22.50 H (6-20) Glucose 108 (78-110) mg/dL Mean Blood Glucose 113.467 mg/dL Hemoglobin A1c 5.99 (4.2-6.0) % Calculated Osmolality 288.0 (267-292) mOsm/kg Calcium 9.8 (8.7-10.7) mg/dL Total Bilirubin 0.6 (0.3-1.2) mg/dL AST 24 (8-39) IU/L ALT 40 (9-52) IU/L Alkaline Phosphatase 109 (38-126) IU/L Total Protein 7.4 (6.1-8.0) g/dL Albumin 4.1 (3.5-4.8) g/dL Globulin 3.3 (2.50-4.10) g/dL Albumin/Globulin Ratio 1.20 L (1.3-2.0) mg/g Vitamin B12 414 (239-931) pg/mL Vitamin D 25-Hydroxy 26.1 L (30-100) NG/ML Serum Folate 17.9 (2.76-20.0) NG/ML TSH 4.74 H (0.2700-4.2000) uIU/mL Free T4 0.98 (0.93-1.71) ng/dL Patient Problems - Patient Problem List (1) COPD (chronic obstructive pulmonary disease) Status: Acute (2) Wedge compression fracture of T8 vertebra Status: Acute Qualifiers: Encounter type: initial encounter Fracture type: closed Qualified Description: Closed wedge compression fracture of eighth thoracic vertebra, initial encounter Qualifier Code(s): (S22.060A) Wedge compression fracture of T7-T8 vertebra, initial encounter for closed fracture (3) Thoracic back pain Status: Acute (4) Attention deficit disorder Status: Acute (5) Chronic right shoulder pain Status: Chronic (6) Nausea and vomiting Status: Acute (7) Obstructive sleep apnea Status: Acute (8) Obesity Status: Acute Qualifiers: Obesity type: unspecified obesity type Obesity severity: non-morbid Qualified Description: Non morbid obesity, unspecified obesity type Qualifier Code(s): (E66.9) Obesity, unspecified (9) Tobacco abuse Status: Acute (10) Osteoporosis Status: Acute
== END 2017-05-11 12:35 | disposition home or self-care (01) | DRG 543 ==
LOC: ER 03:52 → MED/SURG 05:58
PROVIDERS: ADMIT Family Medicine; ATTEND Family Medicine
DX: M48.54XA Collapsed vertebra, not elsewhere classified, thoracic region, initial encounter for fracture (principal); J44.1 Chronic obstructive pulmonary disease with (acute) exacerbation; M25.511 Pain in right shoulder; R11.2 Nausea with vomiting, unspecified; G47.33 Obstructive sleep apnea (adult) (pediatric); E66.9 Obesity, unspecified; Z72.0 Tobacco use; M81.0 Age-related osteoporosis without current pathological fracture
CPT/HCPCS: 72146; 74178; 80053; 81401; 82306; 82607; 82746; 83036; 84439; 84443; 85025; 94640; 94761; 96374; 96375; 97014; 97110; 97163; 97166; 97530; 97535; 99285; A4556; J1170; J1885; J2405; J7512; J7620

== ENCOUNTER → 2017-05-15 | Outpatient (CLI) | payer OTHER ==
[2017-05-15 14:25] LABS: BASOPHILS # (AUTO) 0.07 10*3/UL; BASOPHILS % (AUTO) 0.6 % (0-1); EOSINOPHILS # (AUTO) 0.42 10*3/UL; EOSINOPHILS % (AUTO) 3.6 % (0-8); HEMATOCRIT 43.4 % (37.0-47.0); HEMOGLOBIN 14.3 g/dL (12.0-16.0); LYMPHOCYTES # (AUTO) 2.77 10*3/uL; MEAN CORPUSCULAR HEMOGLOBIN 29.4 PG (27-31); MEAN CORPUSCULAR HGB CONC 32.9 g/dL (33-37); MEAN CORPUSCULAR VOLUME 89.3 FL (81-99); MEAN PLATELET VOLUME 9.7 FL (7.4-12.2); MONOCYTES # (AUTO) 0.73 10*3/UL (0.3-0.8); MONOCYTES % (AUTO) 6.3 % (5-15); NEUTROPHILS % (AUTO) 65.4 % (50-80); RED BLOOD COUNT 4.86 10^6/uL (4.20-5.40)
[2017-05-15 14:30] LABS: PLATELET MORPHOLOGY COMMENT NORMAL MORPHOLOGY (NORM); RBC MORPHOLOGY COMMENT NORMAL MORPHOLOGY (NORM); WBC MORPHOLOGY COMMENT NORMAL MORPHOLOGY (NORM)
[2017-05-15 14:34] LABS: LIPASE 22 IU/L (23-300)
[2017-05-15 14:36] LABS: SERUM ALBUMIN 4.1 g/dL (3.5-4.8)
[2017-05-15 14:39] LABS: BILIRUBIN,URINE NEGATIVE (NEG); CLARITY,URINE CLEAR (CLEAR); COLOR,URINE YELLOW; GLUCOSE, URINE (UA) NEGATIVE (NEG); NITRATE,URINE NEGATIVE (NEG); OCCULT BLOOD,URINE NEGATIVE (NEG); PROTEIN,URINE NEGATIVE (NEG); UROBILINOGEN,URINE 0.2 mg/dL (0.2)
[2017-05-15 14:43] LABS: SQUAMOUS EPITHELIAL CELL,UR RARE; URINE SAMPLE TYPE CLEAN CATCH URINE; URINE SPECIFIC GRAVITY - MAN 1.028
[2017-05-15 14:44] LABS: BACTERIA,URINE RARE
[2017-05-15 14:49] LABS: BLOOD UREA NITROGEN 22 mg/dL (7-22); BUN/CREATININE RATIO 31.42 (6-20); CALCIUM 9.8 mg/dL (8.7-10.7); EST GLOMERULAR FILTRATION > 60 (>60 ml/min/1.73m(2)); SERUM ALBUMIN 4.1 g/dL (3.5-4.8)
[2017-05-15 15:26] LABS: ERYTHROCYTE SEDIMENTATION RATE 15 MM/HR (0-20)
== END ==
LOC: LAB 13:57
PROVIDERS: ATTEND Physician Assistant
DX: I50.9 Heart failure, unspecified (principal); J43.9 Emphysema, unspecified; M80.88XD Other osteoporosis with current pathological fracture, vertebra(e), subsequent encounter for fracture with routine healing; R16.0 Hepatomegaly, not elsewhere classified; R16.1 Splenomegaly, not elsewhere classified; R11.2 Nausea with vomiting, unspecified; M54.6 Pain in thoracic spine; R32 Unspecified urinary incontinence; F17.200 Nicotine dependence, unspecified, uncomplicated
CPT/HCPCS: 36415; 80053; 80076; 81001; 82150; 82550; 83690; 83880; 84484; 85025; 85652; 86140

== ENCOUNTER → 2017-05-21 | Outpatient (CLI) | payer OTHER ==
--- NOTE | 2017-05-21 13:50 | EKG ---
[address] [address] Measurements Intervals [place] Rate: 75 P: 64 FL: 182 QRS: 1 QRSD: 109 T: 48 QT: 385 QTc: 414 Interpretive Statements SINUS RHYTHM WITH OCCASIONAL VENTRICULAR PREMATURE COMPLEXES LOW VOLTAGE Compared to ECG 09/20/2015 11:28:05 Ventricular premature complex(es) now present Indeterminate axis no longer present Electronically Signed On 05-21-17 19:51:03 MDT by Rick Fowler [email or web address]
[2017-05-21 13:58] LABS: BASOPHILS # (AUTO) 0.12 10*3/UL; BASOPHILS % (AUTO) 1.2 % (0-1); EOSINOPHILS # (AUTO) 0.55 10*3/UL; EOSINOPHILS % (AUTO) 5.4 % (0-8); HEMOGLOBIN 13.1 g/dL (12.0-16.0); LYMPHOCYTES # (AUTO) 2.57 10*3/uL; MEAN CORPUSCULAR HEMOGLOBIN 29.6 PG (27-31); MEAN CORPUSCULAR HGB CONC 32.8 g/dL (33-37); MEAN CORPUSCULAR VOLUME 90.5 FL (81-99); MEAN PLATELET VOLUME 9.7 FL (7.4-12.2); MONOCYTES # (AUTO) 0.94 10*3/UL (0.3-0.8); MONOCYTES % (AUTO) 9.3 % (5-15); NEUTROPHILS # (AUTO) 5.93 10*3/UL; NEUTROPHILS % (AUTO) 58.5 % (50-80); PLATELET MORPHOLOGY COMMENT NORMAL MORPHOLOGY (NORM); RBC MORPHOLOGY COMMENT NORMAL MORPHOLOGY (NORM); RED BLOOD COUNT 4.42 10^6/uL (4.20-5.40); WBC MORPHOLOGY COMMENT NORMAL MORPHOLOGY (NORM)
[2017-05-21 14:06] LABS: BLOOD UREA NITROGEN 17 mg/dL (7-22); BUN/CREATININE RATIO 24.28 (6-20); C-REACTIVE PROTEIN 5.2 mg/dL (0.0-0.9); CALCIUM 9.8 mg/dL (8.7-10.7); EST GLOMERULAR FILTRATION > 60 (>60 ml/min/1.73m(2)); SERUM ALBUMIN 3.9 g/dL (3.5-4.8)
[2017-05-21 14:22] LABS: CREATINE KINASE MB 1.47 NG/ML (0.00-5.00); TROPONIN I < 0.012 ng/mL (< 0.040)
--- NOTE | 2017-05-21 14:27 | DI ---
XR CXR 2VW PA/LAT,05/21/2017 1:02 PM: Clinical History: Cough Previous Exam: May 07, 2017 Findings: PA and lateral views of the chest are obtained, and demonstrates mild increased interstitial markings which are stable from the prior exam. The cardiomediastinum and bony thorax are stable. Postsurgical changes of the neck and the right shou lder are noted. A nonobstructive bowel gas pattern is seen. There is a compression deformity involving what appears t o be the seventh thoracic vertebral body as well as the Impression: 1. No acute cardiopulmonary disease. 2. Continued compression deformity of the seventh thoracic vertebral body which has worsened since th e prior exam.
== END ==
LOC: MOB RAD 13:05
PROVIDERS: ATTEND Physician Assistant
DX: R06.02 Shortness of breath (principal); R05 Cough; R07.9 Chest pain, unspecified; I10 Essential (primary) hypertension; R60.0 Localized edema
CPT/HCPCS: 36415; 71020; 80053; 82553; 83880; 84484; 85025; 86140; 93005; 93010

== ENCOUNTER 2017-06-03 14:05 | Emergency (ER) | payer OTHER ==
[2017-06-03 14:35] VITALS: RESP 18; TEMP 97
--- NOTE | 2017-06-03 14:39 | PDOC ---
Gen Adult / Medical Screen HPI - General Chief Complaint: General Medical Stated Complaint: RAN OUT OF MEDS Date Seen by Provider: 06/03/17 Time Seen by Provider: 14:34 Source: POSITIVE: Patient Exam Limitations: POSITIVE: No limitations - Indicators Temperature Between 95 and 101 Degrees: Yes Respirations Between 12 and 20: Yes Blood Pressure Between 100-165 (sys) and 60-100 (kerr): Yes Pulse Range Between 60-105 (100 for age > 60 years): Yes Severe Pain (Greater than 5/10 Reported): Yes (back pain) Chest or Abdominal Pain: No Inability to Walk: No Pt Reports Active High Risk Cond. (TB/Hepatitis/HIV/Chemo): No Abnormal Mental Status: No - Patient Home Medications Home Medications: Home Medications Albuterol Sulfate [Proair Hfa] 2 puff INH Q4-6H #1 inh 01/23/17 Albuterol/Ipratrop Neb Soln [Duoneb Neb Soln] 3 ml NEB 3-4XD #120 appful Pravastatin Sodium 1 tab PO DAILY #30 tab 02/28/17 Zolpidem Tartrate [Ambien] 1 tab PO QHS #30 tab 03/09/17 Sertraline HCl [Zoloft] 1 tab PO DAILY #30 tab 04/09/17 Dextroamphetamine/Amphetamine [Adderall Xr 30 mg Capsule] 1 tab PO BID #60 cap 05/07/17 Calcium/Vit D 600mg/400u Tab [Calcium 600mg + D 400u Tab] 2 tab PO DAILY #180 tab 05/11/17 Ergocalciferol [Vitamin D] 50,000 iu PO Q7D #7 cap 05/11/17 Meloxicam [Mobic] 15 mg PO DAILY PRN #20 tab 05/11/17 Oxycodone HCl/Acetaminophen [Oxycodon-Acetaminophen 7.5-325] 1 - 2 tab PO Q4H # 60 tab 05/29/17 - Patient Allergies Allergies/Adverse Reactions: Allergies Allergy/AdvReac Type Severity Reaction Status Date / Time No Known Allergies Allergy Verified 06/03/17 14:18 Past Medical History - heen HEENT History: Hard of Hearing, Dentures/Partials, Other (please comment) Additional HEENT History: 90% HEARING DEFICIT, READS LIPSDENTURES UPPERS AND LOWERS Cardiovascular History: Hypertension, Hyperlipidemia Respiratory History: Asthma, COPD, Sleep Apnea, Home Oxygen Use Additional Respiratory History: 3.5LITERS AT NIGHT Gastrointestinal History: GERD Additional Gastrointestinal History: INGUINAL PAIN/FATTY INFILTRATION OF LIVER Genitourinary History: Denies History Endocrine History: Type 2 Diabetes (diet), Type 2 Diabetes (oral) Musculoskeletal History: Osteoporosis, Back Pain, Back Injury, Joint Pain, Other (please comment) Prosthesis or Implant: No (NECK) Additional Musculoskeletal History: Lt elbowplates/screws in neck/hx fractured jaw Neurological History: CVA, Traumatic Brain Injury, Frequent Headaches Additional Neurological History: PT DENIES HEAD TRAUMA BUT THEN DESCRIBES BEING BEATEN UNTIL HER HEAD BURST OPEN BY HER EX . PT HAS LARGE SCAR FROM TOP HEAD WITHIN HAIR AND DOWN AROUND AND THROUGH EYE SOCKET DOWN CHEEKANDBELOWCHIN/ R EAR AREA.INSOMNIA2 STROKES- LEFT SIDE OF HER FACE DROOP Blood Disorders: Denies History Psychiatric History: Depression, ADHD, Other (please comment) Additional Psychiatric History: insonmia History of Sexually Transmitted Diseases: No Cancer History: Denies History History of MDRO: No History of Other Communicable Diseases: No Alcohol Use: None Substance Use Type: None Previous Surgical History: Yes Type / Date of Surgery: NERVE SURGERY LEFT ELBOW, CERVICAL FUSION WITH PLATE C4- 6, COLONOSCOPY Anesthesia Reactions: No Malignant Hyperthermia: No Significant Family History: Asthma, Heart disease, Cancer, COPD, Diabetes, Hypertension, Lung disease ROS - Limitations ROS Limitations: Uncooperative Constitution: REPORTS: Denies Symptoms (Elected to leave AMA prior to being examined or further information taken about the nature of her problem. Patient was complaining of being out of pain medication, and upon being informed that I would not provide narcotic pain medicine she elected to leave AMA. No further review of systems is unavailable.) Musculoskeletal: REPORTS: Back Pain Gen Adult/Medical Screen Exam - General Appearance General Appearance: POSITIVE: Alert, Cooperative, No Acute Distress, No Evidence of Trauma - HEENT HEENT: POSITIVE: Head Inspection Nml, Eyes Inspection Nml, Ears Inspection Nml, Nose Inspection Nml, PERRL, EOMI - Pupils Pupil Size: 4 mm: Bilateral - Respiratory Respiratory: POSITIVE: No Respiratory Distress - Neurological / Psychological Mental Status: POSITIVE: Mood Normal, Affect Normal Orientation: POSITIVE: Oriented x 3 - Skin Skin: POSITIVE: Normal Color Procedures - Laceration/Wound Repair Did patient have a laceration repair: No Gen Adlt/Medical Scrn Progress - Patient's Progress Status: POSITIVE: Unchanged MDM / ED Course: I walked into the patient's room, and asked her what her chief complaint was. She stated she was having back pain and that she was out of pain medication and wanted a refill. Prior to starting my examination I informed her that I did not provide narcotic pain medicine refills for chronic pain. I did offer her Toradol for pain control but prior to examining her she elected to leave the emergency room. Patient Care Time - Estimated PCT Patient Care Time (In Minutes): 5 Vital Signs - VS Reviewed Vital Signs Reviewed: Yes Discharge Clinical Impression: Back pain Discharge Disposition: Against Medical Advice Condition: Stable
== END 2017-06-03 14:34 | disposition left against medical advice (07) ==
LOC: ER 14:05
DX: M54.89 Other dorsalgia (principal)
CPT/HCPCS: 99282

== ENCOUNTER 2017-06-05 11:47 | Emergency (ER) | payer OTHER ==
[2017-06-05] MEDS ORDERED: IPRATROPIUM/ALBUTEROL SULFATE 3 ML NEB NEB ONE (12:01)
[2017-06-05] MEDS ORDERED: KETOROLAC 15 MG/1 ML VIAL IVP ONE (12:01)
[2017-06-05] MEDS ORDERED: Sodium Chloride 0.9% 1,000 ML PRIMARY IV ONE (12:01)
[2017-06-05] MEDS ORDERED: ONDANSETRON 4 MG/2 ML VIAL IVP ONE (12:01)
[2017-06-05] MEDS ORDERED: LORazepam 2 MG/1 ML VIAL IVP ONE ×3 (12:01→15:26)
[2017-06-05 12:04] VITALS: RESP 19; TEMP 96.7
[2017-06-05] MEDS ORDERED: HYDROmorphone 2 MG/1 ML IVP ONE ×2 (12:06→14:06)
--- NOTE | 2017-06-05 12:09 | PDOC ---
Back Pain / Injury HPI - General Chief Complaint: Neck / Back Complaint Stated Complaint: THORACIC BACK PAIN INCREASING AT 0400 TODAY Date Seen by Provider: 06/05/17 Time Seen by Provider: 12:04 Source: Patient, RN/MD Exam Limitations: POSITIVE: No limitations Nurse's Notes Reviewed & Considered: Yes - History of Present Illness Initial Comments: Patient comes in today chief complaint of back pain. Patient was seen by her neurosurgeon and directed here to the emergency room for evaluation of her back pain. She had a biopsy of the bones in her thoracic spine last week and has had increasing and continued pain. She denies any headache, no chest pain, she does have shortness of breath related to the pain associated with deep respirations. His in her back. No nausea vomiting or diarrhea, no fever chills or sweats, no hematuria or dysuria, no myalgias. Body Location Affected: REPORTS: Back Timing: REPORTS: Constant Duration: Unknown Severity: Severe Quality: REPORTS: "Pain", Sharpness, Stabbing, Throbbing Context: REPORTS: None Modifying Factors: improves with: Breathing (Deep respirations causes pain to be worse as well as any movement.), Movement Associated Symptoms: REPORTS: Back pain, Shortness of breath Similar Symptoms Previously: Yes Recent Care Received: REPORTS: Recently Seen, Treated by MD Any Prior Injuries Related to Current Complaint?: No - Patient Home Medications Home Medications: Home Medications Albuterol Sulfate [Proair Hfa] 2 puff INH Q4-6H #1 inh 01/23/17 Albuterol/Ipratrop Neb Soln [Duoneb Neb Soln] 3 ml NEB 3-4XD #120 appful Pravastatin Sodium 1 tab PO DAILY #30 tab 02/28/17 Zolpidem Tartrate [Ambien] 1 tab PO QHS #30 tab 03/09/17 Sertraline HCl [Zoloft] 1 tab PO DAILY #30 tab 04/09/17 Dextroamphetamine/Amphetamine [Adderall Xr 30 mg Capsule] 1 tab PO BID #60 cap 05/07/17 Calcium/Vit D 600mg/400u Tab [Calcium 600mg + D 400u Tab] 2 tab PO DAILY #180 tab 05/11/17 Ergocalciferol [Vitamin D] 50,000 iu PO Q7D #7 cap 05/11/17 Meloxicam [Mobic] 15 mg PO DAILY PRN #20 tab 05/11/17 Oxycodone HCl/Acetaminophen [Percocet 10-325 Mg Tablet] 1 - 2 tab PO Q6H PRN # 60 tab 06/04/17 - Patient Allergies Allergies/Adverse Reactions: Allergies Allergy/AdvReac Type Severity Reaction Status Date / Time No Known Allergies Allergy Verified 06/05/17 11:54 Past Medical History - heen HEENT History: Hard of Hearing, Dentures/Partials, Other (please comment) Additional HEENT History: 90% HEARING DEFICIT, READS LIPSDENTURES UPPERS AND LOWERS Cardiovascular History: Hypertension, Hyperlipidemia Respiratory History: Asthma, COPD, Sleep Apnea, Home Oxygen Use Additional Respiratory History: 3.5LITERS AT NIGHT Gastrointestinal History: GERD Additional Gastrointestinal History: INGUINAL PAIN/FATTY INFILTRATION OF LIVER Genitourinary History: Denies History Endocrine History: Type 2 Diabetes (diet), Type 2 Diabetes (oral) Musculoskeletal History: Osteoporosis, Back Pain, Back Injury, Joint Pain, Other (please comment) Prosthesis or Implant: No (NECK) Additional Musculoskeletal History: Lt elbowplates/screws in neck/hx fractured jaw Neurological History: CVA, Traumatic Brain Injury, Frequent Headaches Additional Neurological History: PT DENIES HEAD TRAUMA BUT THEN DESCRIBES BEING BEATEN UNTIL HER HEAD BURST OPEN BY HER EX . PT HAS LARGE SCAR FROM TOP HEAD WITHIN HAIR AND DOWN AROUND AND THROUGH EYE SOCKET DOWN CHEEKANDBELOWCHIN/ R EAR AREA.INSOMNIA2 STROKES- LEFT SIDE OF HER FACE DROOP Blood Disorders: Denies History Psychiatric History: Depression, ADHD, Other (please comment) Additional Psychiatric History: insonmia History of Sexually Transmitted Diseases: No Cancer History: Denies History History of MDRO: No History of Other Communicable Diseases: No Alcohol Use: None Substance Use Type: None Previous Surgical History: Yes Type / Date of Surgery: NERVE SURGERY LEFT ELBOW, CERVICAL FUSION WITH PLATE C4- 6, COLONOSCOPY Anesthesia Reactions: No Malignant Hyperthermia: No Significant Family History: Asthma, Heart disease, Cancer, COPD, Diabetes, Hypertension, Lung disease ROS - Limitations ROS Limitations: No Limitations Constitution: REPORTS: Denies Symptoms Cardiovascular: REPORTS: Denies Cardiac Symptoms Respiratory: REPORTS: Shortness Of Breath Neurological: REPORTS: Denies Neuro Symptoms Gastrointestinal: REPORTS: Denies GI Symptoms Endocrine: REPORTS: Denies Symptoms Musculoskeletal: REPORTS: Back Pain Genitourinary: REPORTS: Denies Symptoms Eyes: REPORTS: Denies Symptoms ENT: REPORTS: Denies Symptoms Skin: REPORTS: Denies Skin Symptoms Lympathic: REPORTS: Denies Lympathic Symptoms Immunologic: POSITIVE: Denies Symptoms Psychiatric: POSITIVE: Anxiety Back Physical Assessment - General Appearance General Appearance: REPORTS: Alert, Cooperative, No Evidence of Trauma, Moderate Distress - HEENT HEENT: POSITIVE: Head Inspection Nml, Eyes Inspection Nml, Ears Inspection Nml, Nose Inspection Nml, Oral/Dental Inspect. Nml, Pharynx Inspect. Nml, PERRL, EOMI - Pupil Size Pupil Size: 5 mm: Bilateral - Neck Neck: POSITIVE: Non Tender, Painless ROM, Trachea Midline, Nexus Criteria Negative - Respiratory / CVS Respiratory / CVS: POSITIVE: Chest Non Tender, No Ecchymosis, No Respiratory Distress, Heart Sounds Normal, Regular Rate/Rhythm, Rhonchi (Bilateral) - Abdomen Abdomen: Soft: (All Quadrants), Normal Bowel Sounds: (All Quadrants), Denies Tenderness: (All Quadrants), No Splenomegaly: (All Quadrants), No Hepatomegaly: (All Quadrants), No Guarding: (All Quadrants), No Rebound: (All Quadrants), No Palpable Pulse: (All Quadrants), No Palpabale Mass: (All Quadrants), No Distention: (All Quadrants), No Rigidity: (All Quadrants) - Back Back: REPORTS: Vertebral Pt. 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 As Tested, Motor Normal, Sensation Normal, Mood Appropriate, Affect Appropriate, Reflexes Normal Back Progress - Results Reviewed by me Xrays/CTs/US Reviewed: Yes Discussed with Radiologist: Yes Lab Results Reviewed: Yes Lab Results:: Laboratory Results 06/05/17 Range/Units 12:25 WBC 11.06 H (4.8-10.8) 10^3/uL RBC 4.72 (4.20-5.40) 10^6/uL Hgb 13.8 (12.0-16.0) g/dL Hct 42.6 (37.0-47.0) % MCV 90.3 (81-99) FL MCH 29.2 (27-31) PG MCHC 32.4 L (33-37) g/dL RDW Std Deviation 45.8 (39-50) fL RDW Coeff of Joseph 14.2 (11.5-14.5) % Plt Count 310 (140-350) 10*3/uL MPV 10.1 (7.4-12.2) FL Immature Gran % (Auto) 0.2 (0-5) % Neut % (Auto) 64.7 (50-80) % Lymph % (Auto) 21.2 (10-50) % [place] % (Auto) 8.6 (5-15) % Eos % (Auto) 4.8 (0-8) % Baso % (Auto) 0.5 (0-1) % Immature Gran # (Auto) 0.02 10*3/UL Neut # (Auto) 7.16 10*3/UL Lymph # (Auto) 2.34 10*3/uL [place] # (Auto) 0.95 H (0.3-0.8) 10*3/UL Eos # (Auto) 0.53 10*3/UL Baso # (Auto) 0.06 10*3/UL WBC Morphology Comment Normal morphology (NORM) Plt Morphology Comment Normal morphology (NORM) RBC Morph Comment Normal morphology (NORM) ESR 35 H (0-20) MM/HR Sodium 139 (135-145) meq/L Potassium 4.6 (3.8-5.2) meq/L Chloride 102 (98-112) meq/L Carbon Dioxide 28 (23-33) meq/L Anion Gap 9 (5-20) BUN 13 (7-22) mg/dL Creatinine 0.7 (0.50-1.20) mg/dL Estimated GFR > 60 (>60 ml/min/1.73m(2)) BUN/Creatinine Ratio 18.57 (6-20) Glucose 91 (78-110) mg/dL Calculated Osmolality 287.0 (267-292) mOsm/kg Calcium 9.9 (8.7-10.7) mg/dL Total Bilirubin 0.5 (0.3-1.2) mg/dL AST 20 (8-39) IU/L ALT 39 (9-52) IU/L Alkaline Phosphatase 110 (38-126) IU/L C-Reactive Protein 4.8 H (0.0-0.9) mg/dL Total Protein 7.5 (6.1-8.0) g/dL Albumin 4.3 (3.5-4.8) g/dL Globulin 3.2 (2.50-4.10) g/dL Albumin/Globulin Ratio 1.30 (1.3-2.0) mg/g - Patient's Progress Pain Medication Addressed: POSITIVE: Yes Status: POSITIVE: Improved MDM / ED Course: Patient was examined, an IV started, blood drawn and sent to the lab for studies , radiographic examinations were obtained. Patient received multiple doses of Dilaudid, Ativan, and Zofran. Findings: CT scan and MRI show endplate fracture of T8 with no evidence of discitis. CBC is within normal limits. CRP is elevated at 4.8. ESR is elevated at 35. Assessment: Back pain with possible infective etiology versus compression fracture of T8. Plan: Patient was offered admission which she refused she was offered transfer to [facility] which she refused. She left AMA. - Consult Consult (If Yes, Name of Consulting MD & Time Called): Yes (Dr. Yeboah) Consulting MD will see pt:: POSITIVE: [facility] [place] Admit, Recommended Transfer Counseled: POSITIVE: Patient, RE: Lab Results, RE: Radiology Results, RE: DX, RE : Need for F/U Patient Care Time - Estimated PCT Patient Care Time (In Minutes): 90 Vital Signs - VS Reviewed Vital Signs Reviewed: Yes Discharge Clinical Impression: Thoracic back pain Wedge compression fracture of T8 vertebra Qualifiers: Encounter type: initial encounter Fracture type: closed Qualifier Code: ( S22.060A) Wedge compression fracture of T7-T8 vertebra, initial encounter for closed fracture Discharge Disposition: Against Medical Advice Condition: Stable Follow Up With: ALIZA ORO [Primary Care Provider] -
[2017-06-05 12:40] LABS: BASOPHILS # (AUTO) 0.06 10*3/UL; BASOPHILS % (AUTO) 0.5 % (0-1); EOSINOPHILS # (AUTO) 0.53 10*3/UL; EOSINOPHILS % (AUTO) 4.8 % (0-8); HEMATOCRIT 42.6 % (37.0-47.0); HEMOGLOBIN 13.8 g/dL (12.0-16.0); LYMPHOCYTES # (AUTO) 2.34 10*3/uL; MEAN CORPUSCULAR HEMOGLOBIN 29.2 PG (27-31); MEAN CORPUSCULAR HGB CONC 32.4 g/dL (33-37); MEAN CORPUSCULAR VOLUME 90.3 FL (81-99); MEAN PLATELET VOLUME 10.1 FL (7.4-12.2); MONOCYTES # (AUTO) 0.95 10*3/UL (0.3-0.8); MONOCYTES % (AUTO) 8.6 % (5-15); NEUTROPHILS # (AUTO) 7.16 10*3/UL; NEUTROPHILS % (AUTO) 64.7 % (50-80); RED BLOOD COUNT 4.72 10^6/uL (4.20-5.40)
[2017-06-05 12:49] LABS: BLOOD UREA NITROGEN 13 mg/dL (7-22); BUN/CREATININE RATIO 18.57 (6-20); C-REACTIVE PROTEIN 4.8 mg/dL (0.0-0.9); CALCIUM 9.9 mg/dL (8.7-10.7); EST GLOMERULAR FILTRATION > 60 (>60 ml/min/1.73m(2)); SERUM ALBUMIN 4.3 g/dL (3.5-4.8)
[2017-06-05 12:56] LABS: PLATELET MORPHOLOGY COMMENT NORMAL MORPHOLOGY (NORM); RBC MORPHOLOGY COMMENT NORMAL MORPHOLOGY (NORM); WBC MORPHOLOGY COMMENT NORMAL MORPHOLOGY (NORM)
[2017-06-05 13:45] LABS: ERYTHROCYTE SEDIMENTATION RATE 35 MM/HR (0-20)
--- NOTE | 2017-06-05 14:22 | DI ---
CT LUMBAR SPINE W/O CONTRAST,06/05/2017 12:01 PM: Clinical History: Pain Previous Exam: None at this facility. Findings: Multiple helically acquired CT images are obtained through the lumbar spine without contrast, and dem onstrate vacuum disc phenomenon at L5/S1. There is also vacuum phenomenon at L4/5 and L5/S1. There is facet hypertrophy noted. There is some vacuum phenomenon within the sacroiliac joints. There is subsegmental atelectasis in the right lung base. A few peripheral vascular calcifications are seen. Impression: Diffuse degenerative changes of the lumbar spine without fractures.
--- NOTE | 2017-06-05 14:48 | DI ---
CT THORACIC SPINE W/O CONTRAST,06/05/2017 12:01 PM: Clinical History: Thoracic pain Previous Exam: September 22, 2014 Findings: Multiple helically acquired CT images are obtained through the thoracic spine without contrast, and d emonstrate subcutaneous air within the posterior fat. There are emphysematous changes and subsegmental atelectasis. Coronary artery calcifications are also noted. The upper abdomen is unremarkable. Images are somewhat limited due to motion artifact. There is screw and plate fixation of lower cervical spine. There is a compression deformity with vacuum phenomenon involving the inferior endplate of the eighth thoracic vertebral body. Impression: 1. Compression deformity of the inferior endplate of the eighth thoracic vertebral body. 2. There is air density within the subcutaneous fat of the mid thoracic back. This appears to represe nt prior injection. Correlate clinically.
[2017-06-05] MEDS ORDERED: HYDROmorphone 2 MG/1 ML IVP PRN (15:26)
--- NOTE | 2017-06-05 17:17 | DI ---
MRI THORACIC SPINE W/O CN,06/05/2017 3:26 PM: Clinical History: Thoracic back pain. Previous Exam: May 09, 2017 Findings: Multiplanar MR images are obtained through the thoracic spine without contrast. Bony alignment is anatomic. There is a compression fracture involving the inferior endplate of the ei ghth thoracic vertebral body with increased marrow signal and reactive edema. The intervertebral disc spaces are normal with normal signal. There is some new increased T2 signal from the paravertebral m usculature and soft tissues entering in the left pedicle most consistent with recent vertebral biopsy . The prevertebral edema has decreased in intensity since the prior exam. Impression: Continued evolution of an inferior endplate compression fracture of the eighth thoracic vertebral bod y. No evidence of discitis.
--- NOTE | 2017-06-05 18:14 | PDOC(PROG) ---
General Note Progress Note: I was asked by Dr. Lagos to see this patient and a curbside consultation. She had had a recent admission for compression fracture and was back in with complaints of pain and possible concern for discitis. Her pain is been significantly worse, but no fevers. The patient is adamant that she go home. Her friend and patient advocate is with her, and I did speak with neurosurgery as well. The patient had a biopsy done last Sunday and apparently is culture negative but pathology is not back yet. It is felt by neurosurgery that this is likely a discitis even with negative results at this point and that the culture results or biopsy attempt resulted in aspirate. We explained this to the patient thoroughly and the patient stated that she did not want to be here in the hospital, she did not want admission here was transferred to [place] [facility], and she did not want transfer to [facility]. She stated that she would try to go to [place] [facility] to deal with this. Her patient advocate also tried to help explain this. On exam, the patient has a normal heart rate with no murmur. Her lungs are wheezy. She is tender to palpation in the thoracic spine. There was no surface cellulitis or erythema. At this point, my assessment would be possible discitis, even despite negative biopsy result. Plan: 1. Recommend admission [facility] with pain control and possible transfer to [place] [facility] to hospitalists with spine surgery and infectious disease in consultation. Patient refuses this. 2. I would recommend consideration for transfer to [facility], again which patient refuses adamantly. 3. I would hold off on any antibiotic therapy unless patient presents with worsening infectious symptoms, until infectious disease consultation can take place. 4. Pain medications as per emergency room physician. Thank you for this curbside, after spending nearly 60 minutes trying to convince the patient of the best treatment plan including transfer to [place] either tomorrow or today, the patient adamantly continues to refuse.
== END 2017-06-05 17:57 | disposition left against medical advice (07) ==
LOC: ER 11:47
DX: S22.060A Wedge compression fracture of T7-T8 vertebra, initial encounter for closed fracture (principal); R06.02 Shortness of breath; E11.9 Type 2 diabetes mellitus without complications; M54.6 Pain in thoracic spine
CPT/HCPCS: 72128; 72131; 72146; 80053; 85025; 85652; 86140; 94640; 96374; 96375; 96376; 99283 ×2; J1170; J2060; J2405; J7620; J7030

== ENCOUNTER → 2017-06-05 | Outpatient (CLI) | payer OTHER ==
--- NOTE | 2017-06-05 23:49 | DI ---
XR T-SPINE 2VW,06/05/2017 10:55 AM: Clinical History: Thoracic back pain Previous Exam: May 07, 2017 Findings: AP and lateral views of the thoracic spine are obtained, and demonstrate some worsening compression o f the inferior endplate of the eighth thoracic vertebral body. Patient is status post right total shoulder arthroplasty. There is screw and plate fixation of lower cervical spine. Impression: Worsening compression fracture of the inferior endplate of the eighth thoracic vertebral body.
== END ==
LOC: ORTHO 10:57
PROVIDERS: ATTEND Neurological Surgery
DX: M54.6 Pain in thoracic spine (principal); S22.069A Unspecified fracture of T7-T8 vertebra, initial encounter for closed fracture; Z72.0 Tobacco use
CPT/HCPCS: 72070

== ENCOUNTER → 2017-06-12 | Outpatient (CLI) | payer OTHER ==
[2017-06-12 13:13] LABS: BASOPHILS # (AUTO) 0.12 10*3/UL; BASOPHILS % (AUTO) 1.1 % (0-1); EOSINOPHILS % (AUTO) 1.8 % (0-8); HEMATOCRIT 38.6 % (37.0-47.0); HEMOGLOBIN 12.5 g/dL (12.0-16.0); LYMPHOCYTES # (AUTO) 1.71 10*3/uL; MEAN CORPUSCULAR HEMOGLOBIN 28.9 PG (27-31); MEAN CORPUSCULAR HGB CONC 32.4 g/dL (33-37); MEAN CORPUSCULAR VOLUME 89.4 FL (81-99); MONOCYTES # (AUTO) 1.05 10*3/UL (0.3-0.8); MONOCYTES % (AUTO) 9.6 % (5-15); NEUTROPHILS % (AUTO) 71.5 % (50-80); RED BLOOD COUNT 4.32 10^6/uL (4.20-5.40)
[2017-06-12 13:15] LABS: BLOOD UREA NITROGEN 12 mg/dL (7-22); CALCIUM 9.5 mg/dL (8.7-10.7); EST GLOMERULAR FILTRATION > 60 (>60 ml/min/1.73m(2)); SERUM ALBUMIN 4.1 g/dL (3.5-4.8)
[2017-06-12 13:16] LABS: PLATELET MORPHOLOGY COMMENT NORMAL MORPHOLOGY (NORM); RBC MORPHOLOGY COMMENT NORMAL MORPHOLOGY (NORM); WBC MORPHOLOGY COMMENT NORMAL MORPHOLOGY (NORM)
--- NOTE | 2017-06-12 13:17 | DI ---
History: Fever, unspecified fever, unknown cause Comparison: May 21, 2010 Findings: Cardiac silhouette is normal in size. Pulmonary vasculature appears to be prominent, there is diffuse interstitial prominence throughout tan th right and left lung field.. These are new findings since previous chest film of May 21, 2017. There is no focal parenchymal consolidation. There is no pleural effusion. Impression The appearance is most consistent pulmonary vascular congestion, but with the stated history of fever , the possibility of diffuse interstitial pneumonia should be considered.
[2017-06-12 13:31] LABS: C-REACTIVE PROTEIN 24.5 mg/dL (0.0-0.9)
[2017-06-13 16:06] LABS: A/G RATIO 0.72 (()); ALB PEP SER 3.1 g/dL (3.4-4.7); ALP1 GLOB 0.5 g/dL (0.1-0.3); ALP2 GLOB 1.4 g/dL (0.6-1.0)
== END ==
LOC: MOB RAD 11:58
PROVIDERS: ATTEND Student in an Organized Health Care Education/Training Program
DX: R50.9 Fever, unspecified (principal); R09.02 Hypoxemia; R06.02 Shortness of breath; R07.9 Chest pain, unspecified; R05 Cough; M84.48XG Pathological fracture, other site, subsequent encounter for fracture with delayed healing; Z72.0 Tobacco use
CPT/HCPCS: 36415; 71020; 80053; 83880; 84155; 84165; 85025; 86140; 87040